=== PATIENT | female | born 1970 | race Caucasian/White ===

== ENCOUNTER 2017-01-12 11:12 | Emergency (ER) | payer MEDICARE, MEDICAID ==
[~2017-01-12] VITALS: Ht 160 cm; Wt 59.0 kg
[~2017-01-12 11:12] MED LIST: DIAZ10TA4 PO; HYDR-3307 PO; IBUP-1222 PO; MESA800T2 PO; OMEP-110 PO; PANT40TA5 PO; SERT25TA3 PO; TERB250T3 PO
[2017-01-12] MEDS ORDERED: METHOCARBAMOL 1,000 MG in DEXTROSE 5% 100 ML IV ONE (11:30)
[2017-01-12] MEDS ORDERED: HYDROmorphone 1 MG/ML, 1ML IV ONE (11:30)
[2017-01-12] MEDS ORDERED: KETOROLAC 30 MG/1 ML IVPush ONE (11:30)
[2017-01-12] MEDS ORDERED: KETOROLAC 30 MG/1 ML ONE (11:31)
[2017-01-12] MEDS ORDERED: GABA-827 PO (11:38)
[2017-01-12] MEDS ORDERED: HYDR-3240 PO (11:38)
[2017-01-12] MEDS ORDERED: UNKNOWN BP MEDS PO (11:38)
[2017-01-12] MEDS ORDERED: HYDROmorphone 1 MG/ML, 1ML ONE (13:12)
[2017-01-12 13:37] LABS: HCG UR OBC PASS
[2017-01-12 15:13] VITALS: BP 134/73
== END 2017-01-12 15:15 | disposition home or self-care (01) ==
LOC: ED 12:51
DX: M54.5 Low back pain (principal); I10 Essential (primary) hypertension; K21.9 Gastro-esophageal reflux disease without esophagitis
CPT/HCPCS: 81001; 81025; 87086; 96365; 96366; 96375; 99285; J1170; J1885; J2800

== ENCOUNTER 2018-03-24 18:21 | Emergency (ER) | payer MEDICARE, MEDICAID ==
[~2018-03-24] VITALS: Ht 160 cm; Wt 57.4 kg
[~2018-03-24 18:21] MED LIST changes: +GABA-827 PO; +HYDR-3240 PO; +UNKNOWN BP MEDS PO
[2018-03-24 18:25] VITALS: BP 141/88
== END 2018-03-24 19:00 | disposition home or self-care (01) ==
LOC: ED 18:54
DX: K02.9 Dental caries, unspecified (principal); K08.89 Other specified disorders of teeth and supporting structures; I10 Essential (primary) hypertension; K21.9 Gastro-esophageal reflux disease without esophagitis
CPT/HCPCS: 99281

== ENCOUNTER 2019-06-28 11:27 | Observation (INO) | payer MEDICARE, MEDICAID ==
[2019-06-25 13:59] LABS: BASOPHILS # (AUTO) 0.09 x10^3/uL (0-0.1); BASOPHILS % (AUTO) 1 % (0-1); EOSINOPHILS # (AUTO) 0.13 x10^3/uL (0-0.4); EOSINOPHILS % (AUTO) 2 % (1-7); LYMPHOCYTES # (AUTO) 2.28 x10^3/uL (1-3.4); LYMPHOCYTES % (AUTO) 31 % (22-44); MD NO; MEAN CORPUSCULAR HEMOGLOBIN 27.3 pg (27.0-34.8); MEAN CORPUSCULAR HGB CONC 32.1 g/dL (32.4-35.8); MEAN CORPUSCULAR VOLUME 84.9 fL (80-100); MEAN PLATELET VOLUME 10.1 fL (7.4-10.4); MONOCYTES % (AUTO) 5 % (2-9); NEUTROPHILS # (AUTO) 4.52 x10^3/uL (1.8-6.8); NEUTROPHILS % (AUTO) 61 % (42-75); PLATELET COUNT 208 x10^3/uL (130-400); RED BLOOD COUNT 5.01 x10^6/uL (3.82-5.3)
[~2019-06-28] VITALS: Ht 160 cm; Wt 64.5 kg
[~2019-06-28 11:27] MED LIST changes: +BUPR1FIL3 PO; +GABA800T5 PO; -HYDR-3307 PO; +HYDR-36 PO; +OMEP40CA42 PO
[2019-06-28] MEDS ORDERED: LACTATED RINGERS 1,000 ML IV SCH (11:45)
[2019-06-28 11:56] VITALS: BP 151/91
[2019-06-28] MEDS ORDERED: ACETAMINOPHEN 500 MG TABLET PO ONE (12:00)
[2019-06-28] MEDS ORDERED: SCOPOLAMINE PATCH, 1.5MG PATCH.TD72 TD ONE (12:00)
[2019-06-28] MEDS ORDERED: GABAPENTIN 300 MG CAPSULE PO ONE (12:00)
[2019-06-28 12:35] LABS: HCG UR SG 1.018 (1.003-1.030)
[2019-06-28] MEDS ORDERED: MIDAZOLAM 1 MG/ML, 2ML ONE (12:46)
[2019-06-28] MEDS ORDERED: FENTANYL PF 250 MCG/5ML ONE ×5 (12:46→15:04)
[2019-06-28] MEDS ORDERED: KETOROLAC 30 MG/1 ML ONE ×2 (12:48→16:30)
[2019-06-28] MEDS ORDERED: PROPOFOL 10 MG/ML, 20ML ONE (12:50)
[2019-06-28] MEDS ORDERED: ROCURONIUM 10MG/ML,5ML ONE (12:50)
[2019-06-28] MEDS ORDERED: ONDANSETRON 2MG/ML, 2ML ONE (12:50)
[2019-06-28] MEDS ORDERED: DEXAMETHASONE 4 MG/ML, 1ML ONE (12:50)
[2019-06-28] MEDS ORDERED: NEOSTIGMINE 1 MG/ML, 10ML ONE (12:50)
[2019-06-28] MEDS ORDERED: GLYCOPYRROLATE 0.2MG/1ML, 5ML ONE (12:50)
[2019-06-28] MEDS ORDERED: FLUORESCEIN SODIUM 500 MG/5 ML ONE (13:46)
[2019-06-28] MEDS ORDERED: BUPIVACAINE/PF-EPI 0.25% 1:200K ONE (13:46)
[2019-06-28] MEDS ORDERED: LABETALOL 5MG/ML, 20ML IV PRN (14:00)
[2019-06-28] MEDS ORDERED: MEPERIDINE/PF 25MG/ML,1ML IVPush PRN ×2 (14:00→16:30)
[2019-06-28] MEDS ORDERED: MORPHINE SULFATE 4 MG/ML, 1ML IVPush PRN (14:00)
[2019-06-28] MEDS ORDERED: ONDANSETRON 2MG/ML, 2ML IV PRN ×2 (14:00→19:00)
[2019-06-28] MEDS ORDERED: OXYcodone 5 MG/5 ML ORAL.SOL UDC PO PRN ×2 (14:00→16:30)
[2019-06-28] MEDS ORDERED: FENTANYL PF 100 MCG/2ML IV PRN (14:00)
[2019-06-28] MEDS ORDERED: HYDROmorphone 2 MG/ML, 1ML IVPush PRN (14:00)
[2019-06-28] MEDS ORDERED: hydrALAzine 20 MG/ML, 1ML IV PRN (14:00)
[2019-06-28] MEDS ORDERED: CEFAZOLIN 1,000 MG ONE (14:04)
[2019-06-28] MEDS ORDERED: HYDROmorphone 2 MG/ML, 1ML ONE ×4 (14:41→16:31)
[2019-06-28] MEDS ORDERED: BUPIVACAINE/PF-EPI 0.25% 1:200K INFIL ONE (14:42)
[2019-06-28] MEDS ORDERED: METOPROLOL 1 MG/ML, 5ML ONE (15:07)
[2019-06-28] MEDS ORDERED: FENTANYL PF 100 MCG/2ML ONE ×2 (16:04→16:30)
[2019-06-28] MEDS ORDERED: DIAZEPAM 5 MG/ML, 2ML ONE (16:05)
[2019-06-28] MEDS ORDERED: OXYcodone 5 MG/5 ML ORAL.SOL UDC ONE (16:05)
[2019-06-28] MEDS: FENTANYL PF 100 MCG/2ML IV PRN ×2 (16:22→17:54)
[2019-06-28] MEDS: HYDROmorphone 2 MG/ML, 1ML IVPush PRN ×4 (16:23→17:23)
[2019-06-28] MEDS: DIAZEPAM 5 MG/ML, 2ML IVPush PRN ×2 (16:25→16:45)
[2019-06-28] MEDS ORDERED: ONDANSETRON ODT 8 MG PO PRN (16:30)
[2019-06-28] MEDS ORDERED: KETOROLAC 30 MG/1 ML IV PRN (16:30)
[2019-06-28] MEDS ORDERED: PROMETHAZINE 25 MG/ML, 1ML IV PRN (16:30)
[2019-06-28 18:41] VITALS: BP 114/73
[2019-06-28] MEDS: POTASSIUM CHLORIDE 20 MEQ in D5%-0.45% NACL 1,000 ML IV SCH (19:00)
[2019-06-28] MEDS ORDERED: ACETAMINOPHEN 650 MG SUPP PR PRN (19:30)
[2019-06-28] MEDS ORDERED: HYDROmorphone PCA 30 MG/30 ML IV PRN (19:30)
[2019-06-28] MEDS ORDERED: DIAZEPAM 5 MG TABLET ONE (21:58)
[2019-06-28] MEDS: BUPRENORPHINE HCL/NALOXONE 8-2MG FILM SL SCH (22:01)
[2019-06-28] MEDS: DOCUSATE 100 MG CAPSULE PO SCH (22:03)
[2019-06-28] MEDS: GABAPENTIN 400 MG CAPSULE PO SCH (22:03)
[2019-06-28] MEDS: SIMETHICONE 80 MG CHEW TAB PO SCH (22:03)
[2019-06-28] MEDS: DIAZEPAM 10 MG TABLET PO SCH (22:04)
[2019-06-28] MEDS: KETOROLAC 30 MG/1 ML IV PRN (23:51)
[2019-06-29 02:17] VITALS: BP 113/52
[2019-06-29] MEDS: POTASSIUM CHLORIDE 20 MEQ in D5%-0.45% NACL 1,000 ML IV SCH (03:05)
[2019-06-29] MEDS: ACETAMINOPHEN 325 MG TABLET PO PRN ×2 (04:37→08:20)
[2019-06-29] MEDS ORDERED: OMEPRAZOLE 20 MG CAPSULE.DR PO SCH (06:00)
[2019-06-29] MEDS: KETOROLAC 30 MG/1 ML IV PRN (06:24)
[2019-06-29 08:05] VITALS: BP 135/64
[2019-06-29] MEDS: GABAPENTIN 400 MG CAPSULE PO SCH (08:20)
[2019-06-29] MEDS: DOCUSATE 100 MG CAPSULE PO SCH (08:20)
[2019-06-29] MEDS: SIMETHICONE 80 MG CHEW TAB PO SCH (08:20)
[2019-06-29] MEDS ORDERED: DIAZEPAM 5 MG TABLET ONE (08:56)
[2019-06-29] MEDS: DIAZEPAM 10 MG TABLET PO SCH (09:00)
[2019-06-29] MEDS: BUPRENORPHINE HCL/NALOXONE 8-2MG FILM SL SCH (09:04)
== END 2019-06-29 10:32 | disposition home or self-care (01) ==
LOC: OUT 11:27 → 4NE 18:23 → OUT 23:56 → DCLOUNGE 06-29 10:17
PROVIDERS: ADMIT Obstetrics & Gynecology; ATTEND Obstetrics & Gynecology
DX: N93.9 Abnormal uterine and vaginal bleeding, unspecified (principal); R10.2 Pelvic and perineal pain; G89.29 Other chronic pain; Z88.0 Allergy status to penicillin
CPT/HCPCS: 36415; 58552; 81025; 85025; 88307; 93005; 96374; 96376; G0378; J0690; J1100; J1170; J1885; J2250; J2405; J2704; J2710; J3010; J3360; J7120

== ENCOUNTER 2019-09-19 16:24 | Emergency (ER) | payer MEDICARE, MEDICAID ==
[~2019-09-19] VITALS: Ht 160 cm; Wt 61.0 kg
--- NOTE | 2019-09-19 17:03 | NUR ---
PT TO ROOM 28 PER PEDIS. PT WAS SEEN AT [facility] FOR HER SORE THROAT, AND TOLD SHE NEEDED IV ANTIBIOTICS FOR HER THUMBNAIL. PT TORE OFF A HANGNAIL ON THE LEFT THUMB, AND AWOKE THIS MORNING WITH PUS AROUND THE NAILBED AND RED STREAKING UP HER ARM. PT STILL C/O SORE THROAT.
[2019-09-19] MEDS ORDERED: SODIUM CHLORIDE FLUSH 10ML SYR IVF ONE (17:30)
[2019-09-19] MEDS ORDERED: CLINDAMYCIN PMX 600MG/50ML 50 ML IVPB ONE (17:30)
[2019-09-19] MEDS ORDERED: CLINDAMYCIN PMX 600MG/50ML 50 ML ONE (17:49)
[2019-09-19 17:53] LABS: BASOPHILS # (AUTO) 0.06 x10^3/uL (0-0.1); BASOPHILS % (AUTO) 1 % (0-1); EOSINOPHILS # (AUTO) 0.11 x10^3/uL (0-0.4); EOSINOPHILS % (AUTO) 1 % (1-7); LYMPHOCYTES # (AUTO) 2.19 x10^3/uL (1-3.4); LYMPHOCYTES % (AUTO) 20 % (22-44); MD NO; MEAN CORPUSCULAR HEMOGLOBIN 27.2 pg (27.0-34.8); MEAN CORPUSCULAR HGB CONC 32.8 g/dL (32.4-35.8); MEAN CORPUSCULAR VOLUME 82.9 fL (80-100); MEAN PLATELET VOLUME 9.3 fL (7.4-10.4); MONOCYTES # (AUTO) 0.26 x10^3/uL (0.2-0.8); MONOCYTES % (AUTO) 2 % (2-9); NEUTROPHILS # (AUTO) 8.28 x10^3/uL (1.8-6.8); NEUTROPHILS % (AUTO) 76 % (42-75); PLATELET COUNT 270 x10^3/uL (130-400); RED BLOOD COUNT 4.46 x10^6/uL (3.82-5.3); RED CELL DISTRIBUTION WIDTH 15.5 % (9.6-15.2)
--- NOTE | 2019-09-19 18:00 | NUR ---
IV PLACED WITHOUT DIFF. LAB DRAWN AND SENT VIA TUBE SYSTEM. IV ANTIBIOTIC STARTED. PT STABLE SITTING ON BED WATCHING VIDEOS ON HER PHONE.
[2019-09-19 18:02] LABS: ALANINE AMINOTRANSFERASE 35 U/L (12-78); ALBUMIN 3.4 g/dL (3.4-5.0); ANION GAP 6 mmol/L (5-15); CALCIUM 8.8 mg/dL (8.5-10.1); CHLORIDE 109 mmol/L (98-107); CREATININE 0.59 mg/dL (0.55-1.02)
[2019-09-19 18:04] LABS: ALKALINE PHOSPHATASE 121 U/L (45-117); BILIRUBIN,TOTAL 0.2 mg/dL (0.2-1.0); TOTAL PROTEIN 7.4 g/dL (6.4-8.2)
--- NOTE | 2019-09-19 18:41 | NUR ---
DISCHARGE INSTRUCTIONS GIVEN TO PATIENT WITH INFORMATION ON ANTIBIOTIC USE, AND WARM SOAKS FOR THUMB INJURY. PT VERBALIZES UNDERSTANDING OF ALL INSTRUCTIONS AND FOLLOW UP. PT SPRAYING ALL PAPERWORK WITH CANNED LYSOL. PT AMBULATED OUT OF ED WITHOUT DIFF.
[2019-09-19 18:42] VITALS: BP 142/66
== END 2019-09-19 18:46 | disposition home or self-care (01) ==
LOC: ED 17:11
DX: L03.012 Cellulitis of left finger (principal); I10 Essential (primary) hypertension; K21.9 Gastro-esophageal reflux disease without esophagitis
CPT/HCPCS: 36415; 80053; 85025; 96365; 99284